=== PATIENT | female | born 1955 ===

== ENCOUNTER 2019-07-16 10:33 | Outpatient (CLI) | payer MEDICARE, SELFPAY ==
[2019-07-16 11:01] LABS: Creatinine Urine 210.68 mg/dL (40-278)
[2019-07-16 11:02] LABS: MALB Creatinine Ratio 7.4 mg/g (0-30); Microalbumin Urine Random 15.8 mg/L
[2019-07-16 11:14] LABS: Hemoglobin A1C 6.5 % (<5.7)
[2019-07-16 12:11] LABS: Alanine Aminotransferase 30 U/L (14-59); Albumin Level 3.8 g/dL (3.4-5.0); Alkaline Phosphatase 55 U/L (46-116); Anion Gap 12.7 mmol/L (7-16); Aspartate Amino Transferase 17 U/L (15-37); Bilirubin,Total 0.3 mg/dL (0.00-1.00); Blood Urea Nitrogen 18 mg/dL (7-18); Calcium 8.9 mg/dL (8.5-10.1); Carbon Dioxide 28 mmol/L (21-32); Chloride 105 mmol/L (98-108); Cholesterol 126 mg/dL (0-200); Estimated Glomerular Filt Rate 60; Glucose 101 mg/dL (70-99); HDL Direct 52 mg/dL (40-60); LDL Cholesterol Calculated 43 mg/dL (<130); Osmolality Calculated 293 mOsm/kg (285-295); Potassium 4.7 mmol/L (3.5-5.1); Sodium 141 mmol/L (136-145); Total Protein 6.7 g/dL (6.4-8.2); Triglycerides 156 mg/dL (0-150)
== END 2019-07-16 10:34 | disposition home or self-care (01) ==
PROVIDERS: PCP Family Medicine; Visit Provider Family Medicine
DX: E11.9 Type 2 diabetes mellitus without complications (principal)
CPT/HCPCS: 36415; 80053; 80061; 82043; 83036

== ENCOUNTER 2019-10-29 08:35 | Outpatient (CLI) | payer MEDICARE, SELFPAY ==
[2019-10-29 08:54] LABS: Hemoglobin A1C 6.2 % (<5.7)
== END 2019-10-29 08:36 | disposition home or self-care (01) ==
LOC: CHSLAB 08:37
PROVIDERS: PCP Family Medicine; Visit Provider Family Medicine
DX: E11.9 Type 2 diabetes mellitus without complications (principal)
CPT/HCPCS: 36415; 83036

== ENCOUNTER 2020-03-19 08:49 | Outpatient (CLI) | payer MEDICARE, SELFPAY ==
[2020-03-19 09:04] LABS: Hematocrit 39.6 % (35.0-42.0); Hemoglobin 13.3 g/dL (11.7-13.8); Mean Corpuscular HGB Conc 33.6 g/dL (32.0-36.0); Mean Corpuscular Hemoglobin 29.9 pg (27.0-31.0); Mean Platelet Volume 10.5 fl (9.2-11.8); Platelet Count Result 233 K/mm3 (150-420); Red Blood Count 4.45 M/mm3 (4.20-5.40); Red Cell Distribution Width 13.4 % (11.6-14.4); White Blood Count 5.5 K/mm3 (4.8-10.8)
[2020-03-19 09:14] LABS: Hemoglobin A1C 6.5 % (<5.7)
[2020-03-19 09:53] LABS: Alanine Aminotransferase 34 U/L (14-59); Albumin Level 4.1 g/dL (3.4-5.0); Alkaline Phosphatase 63 U/L (46-116); Anion Gap 10 mmol/L (8-16); Aspartate Amino Transferase 37 U/L (15-37); Bilirubin,Total 0.7 mg/dL (0.00-1.00); Blood Urea Nitrogen 20 mg/dL (7-18); Calcium 8.8 mg/dL (8.5-10.1); Carbon Dioxide 29 mmol/L (21-32); Chloride 103 mmol/L (98-108); Cholesterol 147 mg/dL (0-200); Estimated Glomerular Filt Rate 57; Glucose 168 mg/dL (70-99); HDL Direct 65 mg/dL (40-60); LDL Cholesterol Calculated 54 mg/dL (<130); Osmolality Calculated 300 mOsm/kg (285-295); Potassium 4.3 mmol/L (3.5-5.1); Sodium 142 mmol/L (136-145); Total Protein 6.9 g/dL (6.4-8.2); Triglycerides 140 mg/dL (0-150)
== END 2020-03-19 08:50 | disposition home or self-care (01) ==
LOC: CHSLAB 08:52
PROVIDERS: PCP Family Medicine; Visit Provider Family Medicine
DX: E78.5 Hyperlipidemia, unspecified (principal); E11.22 Type 2 diabetes mellitus with diabetic chronic kidney disease; I12.9 Hypertensive chronic kidney disease with stage 1 through stage 4 chronic kidney disease, or unspecified chronic kidney disease; N18.30 Chronic kidney disease, stage 3 unspecified; F41.1 Generalized anxiety disorder; F32.9 Major depressive disorder, single episode, unspecified
CPT/HCPCS: 36415; 80053; 80061; 83036; 85027

== ENCOUNTER 2020-05-15 11:46 | Outpatient (NON) | payer MEDICARE, SELFPAY | END 2020-05-15 11:47 | LOC: CHSLAB 11:47 | PROVIDERS: Visit Provider Nurse Practitioner Family | DX: R39.9 Unspecified symptoms and signs involving the genitourinary system (principal) | CPT/HCPCS: 87077; 87086; 87088; 87186 ==

== ENCOUNTER 2020-06-07 09:37 | Outpatient (CLI) | payer MEDICARE, MEDICAID, SELFPAY | END 2020-06-07 09:38 | disposition home or self-care (01) | LOC: CHSCOVIDVC 09:37 | PROVIDERS: PCP Family Medicine | DX: Z23 Encounter for immunization (principal) | CPT/HCPCS: 0011A; 91301 ==

== ENCOUNTER 2020-07-05 09:39 | Outpatient (CLI) | payer MEDICARE, MEDICAID, SELFPAY | END 2020-07-05 09:40 | disposition home or self-care (01) | LOC: CHSCOVIDVC 09:40 | PROVIDERS: PCP Family Medicine | DX: Z23 Encounter for immunization (principal) | CPT/HCPCS: 0012A; 91301 ==

== ENCOUNTER 2020-07-12 08:27 | Inpatient (IN) | payer MEDICARE, MEDICAID, SELFPAY ==
[2020-07-12] VITALS (10 sets, daily range): BP systolic 131–150; BP diastolic 53–82; PULSE 76–88; RESP 20–26; TEMP 36.2–38.3; O2SAT 86–93; BMI 50.8
--- NOTE | ~2020-07-12 | XR_ITS ---
EXAMINATION: XR chest 2V EXAM DATE: 07/12/2020 09:43 INDICATION: Shortness of breath . TECHNIQUE: Frontal and lateral projections of the chest obtained and reviewed. Comparison is made to prior examination from 11/30/2017. FINDINGS: Bilateral patchy peripheral predominant groundglass opacities Appearance is typical of COV ID 19 pneumonia. Less likely acute possibilities include influenza, pulmonary edema or hemorrhage. S ome chronic processes that can have this appearance include cryptogenic organizing pneumonia, [place] ative interstitial pneumonia, nonspecific interstitial pneumonia, drug toxicity, connective tissue di sease. Please clinically correlate and test as appropriate. No pneumothorax or pleural effusion. Cardiomediastinal silhouette is normal. There is aortic arterios clerosis. There are mild bony degenerative changes. IMPRESSION: Patchy bilateral groundglass airspace disease probably COVID 19 pneumonia given communit y prevalence. Less likely possibilities above. Reviewed, dictated and finalized at location A. IMPRESSION: Patchy bilateral groundglass airspace disease probably COVID 19 pn eum[place] given community prevalence. Less likely possibilities above.
--- NOTE | ~2020-07-12 | CT_ITS ---
EXAMINATION: CTA chest PE protocol EXAM DATE: 07/12/2020 10:44 INDICATION: shortness of breath with elevated D-dimer + D-DIMER, +COVID TECHNIQUE: Spiral CTA of the chest (pulmonary arteries) was performed with 100 cc Omnipaque 350 intr avenous contrast injection. Images were acquired during the pulmonary arterial phase. Coronal maxi mum intensity projection 3D-reconstructions were created by the technologist on dedicated workstation . Axial, coronal and sagittal reformatted images were reviewed. The dose-length product (DLP) for t his examination was 908.50 mGy-cm. The exposure was tailored according to patient size (auto mA exp osure control), and iterative reconstruction (ASIR) was used as additional dose reduction technique. There is no prior study for comparison. FINDINGS: There are no pulmonary emboli in the 1st through 3rd order (central and interlobar) pulmon katelynn arteries. Some loss of attenuation in the segmental pulmonary arteries from respiratory motion, segmental regions not confidently evaluated. No intraluminal filling defects identified. No thoraci c aortic dissection. There is diffuse bilateral airspace disease, groundglass opacities consistent w ith COVID pneumonia. There are no pleural or pericardial effusions. Tracheobronchial tree is paten t. There is no mediastinal, hilar or axillary lymphadenopathy. There is no pneumothorax. Heart normal in size. There is mild coronary arterial calcification, arterial sclerosis. There are candace cystectomy clips. Moderate sized bridging thoracic endplate osteophytes and disc disease. IMPRESSION: 1. No central pulmonary emboli. Limited segmental evaluation. 2. Diffuse bilateral airspace disease consistent with COVID pneumonia. Reviewed, dictated and finalized at location A.
--- NOTE | ~2020-07-12 | XR_ITS ---
EXAMINATION: XR chest 1V portable EXAM DATE: 07/13/2020 07:46 INDICATION: Worsening clinical condition. Shortness of breath. COVID pneumonia. TECHNIQUE: Frontal and lateral projections of the chest obtained and reviewed. Comparison is made to prior examination from 07/12/2020. FINDINGS: Bilateral diffuse peripheral predominant groundglass opacities, consistent with COVID pneu monia. No pneumothorax or pleural effusion. Cardiomediastinal silhouette is normal. There is aortic a rteriosclerosis. There are mild bony degenerative changes. Differences in AP versus yesterday's PA technique make it difficult to determine whether or not there has been progression in airspace disease. There is not been interval improvement. IMPRESSION: Diffuse bilateral groundglass airspace disease consistent with COVID 19 pneumonia. Reviewed, dictated and finalized at location A. IMPRESSION: Diffuse bilateral groundglass airspace disease consistent with COVI D 19 pneumonia.
--- NOTE | 2020-07-12 09:05 | ECG_ITS ---
Measurements Intervals [place] Rate: 76 P: 93 LA: 154 QRS: 63 QRSD: 106 T: 58 QT: 383 QTc: 432 Interpretive Statements SINUS RHYTHM BASELINE ARTIFACT- I, II, III, AVR, AVL, AVF NORMAL ECG Electronically Signed On 07-12-2020 18:02:13 CDT by Micky Douglas D.O.
[2020-07-12] MEDS: methylPREDNISolone SOD SUCC 125 MG VIAL IV PUSH (09:22)
[2020-07-12] MEDS: SODIUM CHLORIDE 0.9% IV 1,000 ML 999 ML IV CONT (09:23)
[2020-07-12 09:25] LABS: Basophils Absolute Auto 0.02 K/mm3 (0.00-0.10); Basophils Percent Auto 0.2 % (0.0-1.0); Hematocrit 34.4 % (35.0-42.0); Hemoglobin 12.1 g/dL (11.7-13.8); Immature Granulocyte Absolute 0.09 K/mm3 (0.00-0.00); Immature Granulocyte Percent A 0.7 % (0.0-0.0); Lymphocytes Absolute Auto 0.98 K/mm3 (1.10-4.50); Lymphocytes Percent Auto 7.7 % (18.0-42.0); Mean Corpuscular HGB Conc 35.2 g/dL (32.0-36.0); Mean Corpuscular Hemoglobin 29.7 pg (27.0-31.0); Mean Corpuscular Volume 84.3 fL (78.0-102.0); Mean Platelet Volume 10.6 fl (9.2-11.8); Monocytes Absolute Auto 0.63 K/mm3 (0.10-0.90); Neutrophils Percent Auto 86.4 % (50.0-70.0); Platelet Count Result 259 K/mm3 (150-420); Red Blood Count 4.08 M/mm3 (4.20-5.40); White Blood Count 12.7 K/mm3 (4.8-10.8)
[2020-07-12] MEDS: ACETAMINOPHEN 500 MG TABLET 1000 MG PO (09:27)
[2020-07-12 09:42] LABS: SARS-CoV-2 Ag Positive (Negative)
[2020-07-12 09:43] LABS: Partial Thromboplastin Time 28.9 SEC (23.90-30.70)
[2020-07-12 09:47] LABS: Alanine Aminotransferase 42 U/L (14-59); Albumin Level 3.1 g/dL (3.4-5.0); Alkaline Phosphatase 85 U/L (46-116); Anion Gap 14 mmol/L (8-16); Aspartate Amino Transferase 36 U/L (15-37); Bilirubin,Total 0.6 mg/dL (0.00-1.00); Blood Urea Nitrogen 27 mg/dL (7-18); Calcium 8.4 mg/dL (8.5-10.1); Carbon Dioxide 23 mmol/L (21-32); Chloride 97 mmol/L (98-108); Estimated CRCL calculation 48 ml/min; Estimated Glomerular Filt Rate 39; Glucose 225 mg/dL (70-99); NT Pro B Type Natriuretic Pept 576 pg/mL (0-125); Osmolality Calculated 290 mOsm/kg (285-295); Potassium 3.6 mmol/L (3.5-5.1); Sodium 134 mmol/L (136-145); Total Protein 7.3 g/dL (6.4-8.2)
[2020-07-12 09:48] LABS: Troponin I 63.3 ng/L (0.00-60.4)
--- NOTE | 2020-07-12 10:05 | ED.SOB ---
HPI - SOB/Dyspnea General Chief Complaint: Shortness of Breath/Dyspnea Stated Complaint: SOB, lightheadedness Source: patient Mode of arrival: ambulatory Limitations: no limitations History of Present Illness HPI Narrative: this is a 65-year-old female with history of shortness of breath with a cough productive of mildly yellow sputum was seen by primary care practitioners on and started on a steroids and some cough suppressant. But patient shortness of breath persisted currently satting at 86% on room air with temperature of 101?, currently no chest pain no abdominal pain no peripheral edema no nausea or vomiting. MD elicited complaint: shortness of breath and cough Onset (ago): day(s) Context: recent illness Severity: moderate Exacerbating factors: nothing Relieving factors: oxygen Associated symptoms: fever Related Data Allergies Allergy/AdvReac Type Severity Reaction Status Date / Time No Known Allergies Allergy Verified 07/10/20 13:56 Review of Systems Review of Systems: All systems reviewed & are unremarkable except as noted in HPI and below PMFSH Past Medical History Medical History (Updated 07/12/20 @ 10:13 by Reza Torres MD) CKD stage 3 due to type 2 diabetes mellitus Depression FH: bilateral hip replacements Generalized anxiety disorder GERD (gastroesophageal reflux disease) Hyperlipidemia Hypertension Overweight Type 2 diabetes mellitus Surgical History Surgical History H/O: hysterectomy History of cholecystectomy Social History Social History Smoking status: Never smoker Alcohol intake: never Substance use: never Gender identity (if verbalized by the patient): Female Spiritual care concerns: No Exam Const: General: no acute distress and alert Orientation/consciousness: patient oriented x3 HENMT: Head: normal to inspection Eyes: Conjunctivae: conjunctivae normal Pupils: Equal, round and reactive pupils present EOM: EOMs intact bilaterally Neck: Neck: normal visual inspection, no lymphadenopathy and no meningeal signs Chest: Chest palpation & inspection: normal inspection of the chest Resp: Auscultation: rhonchi and diminished lung sounds Cardio: Rate: regular rate Rhythm: regular rhythm GI: GI Palp: Yes Soft to palpation Percussion: Yes normal to percussion Back/Spine/Pelvis: Back: no CVA tenderness Skin: General skin exam: normal color Rashes: no rashes Neuro: General: patient oriented x3, moves all extremities and no meningeal signs Psych: Mental Status: mental status grossly normal Affect: normal affect Course Course Emergency Course: reassessment of patient currently satting at 94% with 4L of oxygen diagnosed with some COVID Vital Signs Vital signs: Vital Signs Temperature 38.3 C H 07/12/20 09:00 Pulse Rate 84 07/12/20 09:00 Respiratory Rate 26 H 07/12/20 09:00 Blood Pressure 150/62 H 07/12/20 09:00 Pulse Oximetry 86 L 07/12/20 09:00 Temperature 38.3 C H 07/12/20 09:00 Pulse Rate 84 07/12/20 09:00 Respiratory Rate 26 H 07/12/20 09:00 Blood Pressure 150/62 H 07/12/20 09:00 Pulse Oximetry 92 07/12/20 09:05 MDM - SOB/Dyspnea Lab Data Result diagrams: 07/12/20 09:15 07/12/20 09:15 Labs: Lab Results 07/12/20 07/12/20 07/12/20 Range/Units 09:10 09:15 09:15 WBC 12.7 H (4.8-10.8) K/mm3 RBC 4.08 L (4.20-5.40) M/mm3 Hgb 12.1 (11.7-13.8) g/dL Hct 34.4 L (35.0-42.0) % MCV 84.3 (78.0-102.0) fL MCH 29.7 (27.0-31.0) pg MCHC 35.2 (32.0-36.0) g/dL RDW 13.0 (11.6-14.4) % Plt Count 259 (150-420) K/mm3 MPV 10.6 (9.2-11.8) fl Immature Gran % (Auto) 0.7 H (0.0-0.0) % Neut % (Auto) 86.4 H (50.0-70.0) % Lymph % (Auto) 7.7 L (18.0-42.0) % Dawes % (Auto) 5.0 (2.0-11.0) % Eos % (Auto) 0.0 L (1.0-6.0)
[2020-07-12 10:14] LABS: D Dimer 0.73 mg/L (0.19-0.50)
--- NOTE | 2020-07-12 11:04 | PM.IMHP ---
H&P: HPI History of Present Illness Date/Time: 07/12/20 11:04 this is a 65-year-old female that presented to our emergency department with shortness of breath, cough with yellowish sputum and dyspnea. Patient has a past medical history of CKD, diabetes, depression,, anxiety, GERD, hyperlipidemia, hypertension and overweight. According to patient she received her second Covid vaccination on Tuesday. Patient started feeling bad on Tuesday patient notes that she has no history of asthma COPD or congestive heart failure. Patient notes she became short of breath that worsened to the point that she had to come to our ED. patient notes that she had shortness of breath with a productive cough with yellow sputum and a fever of 101. Patient also noted that she did go to her primary care physician who prescribed her with Flonase and prednisone. Patient notes that there was no improvement afterwards. Patient WBCs 12.7, RBCs 4.08, hemoglobin 12.1, hematocrit 34.4, platelets 259, D-dimer 0.73, sodium 134, potassium 3.6, BUN 27, creatinine 1.35 GFR 39, glucose 225, liver enzymes within normal limits, troponin 63.3, BUN 576+ Covid test. Patient is being admitted for Covid. Patient does admit to shortness of breath and fatigue. The patient denies CP, palpitation, extremity numbness, lightheadedness, dizziness, constipation, diarrhea, chills, or fever. Chief Complaint: Shortness of breath Review of Systems Review of Systems: Narrative: A 14 organ system Review of Systems was performed and pertinent positives included in the HPI, otherwise remaining ROS is negative. [facility] Past Medical History Medical History (Updated 07/12/20 @ 11:18 by JIGNA Clements) CKD stage 3 due to type 2 diabetes mellitus Depression FH: bilateral hip replacements Generalized anxiety disorder GERD (gastroesophageal reflux disease) Hyperlipidemia Hypertension Overweight Type 2 diabetes mellitus Surgical History Surgical History H/O: hysterectomy History of cholecystectomy Social History Social History Smoking status: Never smoker Alcohol intake: never Substance use: never Gender identity (if verbalized by the patient): Female Spiritual care concerns: No Meds Home Medications and Allergies Home Medications Medication Instructions Recorded Confirmed Type amlodipine 10 mg tablet 10 mg PO DAILY #90 tablet 11/26/19 07/12/20 Rx glipizide 10 mg tablet 10 mg PO DAILY #90 tablet 11/26/19 07/12/20 Rx metformin 1,000 mg tablet 1,000 mg PO BID #180 tablet 11/26/19 07/12/20 Rx metoprolol tartrate 50 mg tablet 50 mg PO BID 90 Days #180 tablet 11/26/19 07/12/20 Rx atorvastatin 10 mg tablet See Rx Instructions .ROUTE 01/15/20 07/12/20 Rx .COMPLEX #90 tablet amitriptyline 100 mg tablet See Rx Instructions .ROUTE 01/22/20 07/12/20 Rx .COMPLEX #90 tablet semaglutide 0.5 mg SUB-Q WEEKLY 90 Days #5.2 ml 05/13/20 07/12/20 Rx phenazopyridine 200 mg tablet 200 mg PO TID PRN #6 tablet 05/15/20 07/12/20 Rx lisinopril 20 mg tablet See Rx Instructions .ROUTE 07/08/20 07/12/20 Rx .COMPLEX #90 tablet benzonatate 200 mg capsule 200 mg PO BID PRN #20 cap 07/10/20 07/12/20 Rx fluticasone propionate 50 1 spray INTRANASAL DAILY #9.9 ml 07/10/20 07/12/20 Rx mcg/actuation nasal spray,suspension prednisone 20 mg tablet 40 mg PO DAILY #10 tablet 07/10/20 07/12/20 Rx Allergies Allergy/AdvReac Type Severity Reaction Status Date / Time No Known Allergies Allergy Verified 07/10/20 13:56 Vital Signs Vital Signs - 24 hr 07/12/20 09:00 07/12/20 09:05 07/12/20 10:34 Temperature 101 F H Pulse Rate 84 88 Respiratory Rate 26 H 26 H Blood Pressure 150/62 H 135/59 L Pulse Oximetry 86 L 92 93 Exam Narrative: Exam Narrative: GENERAL: This is a well-nourished, well-developed patient, in no apparent distress. HEAD: normocephalic, atraumatic. EYES
--- NOTE | 2020-07-12 11:30 | ADMGEN ---
This patient, Cary Bhatt, was admitted to 2nd Floor Room 210-1. Patient oriented to bed and alarms, visiting hours, pain management, procedures, bathroom and other care routines, personal items, smoking policy, room service/diet. Patient encouraged to report perceived risks to care and to ask questions if they do not understand what they are told or what they should do.
[2020-07-12 11:39] LABS: Add Urine Microscopic? YES; Appearance Urine Clear (Clear); Bilirubin Urine Negative (Negative); Blood Urine Negative (Negative); Color Urine Yellow (Yellow); Glucose Urine UA Negative (Negative); Ketones Urine Negative (Negative); Leukocyte Esterase Ur Negative LEU/UL (Negative); Nitrate Urine Negative (Negative); Protein Urine Trace (Negative); Specific Grav Ur <= 1.005 (1.010-1.020); Urobilinogen Urine 0.2 mg/dL (0.2-1.0); pH Urine 5.5 (5.0-8.0)
[2020-07-12 11:44] LABS: Bacteria Urine Trace /hpf; RBC Urine None seen /hpf (0-2); Squamous Epithelial Cell Urine Few /hpf (Few); WBC Urine None seen /hpf (0-3)
[2020-07-12] MEDS: DEXAMETHASONE SOD PHOS INJ 4 MG/ML VIAL 6 MG IV PUSH (12:01)
[2020-07-12] MEDS: SODIUM CHLORIDE 0.9% IV 1,000 ML 100 ML IV CONT ×2 (12:02→20:54)
[2020-07-12] MEDS: REMDESIVIR 200 MG/NS 250 ML 200 MG/250 ML BAG 250 MG IVPB (12:11)
[2020-07-12 12:26] LABS: Glucose Point of Care 291 mg/dl (65-105)
[2020-07-12 15:27] LABS: Troponin I 63.8 ng/L (0.00-60.4)
[2020-07-12] MEDS: DOCUSATE SODIUM 100 MG CAPSULE PO (16:38)
[2020-07-12 17:06] LABS: Glucose Point of Care 413 mg/dl (65-105)
[2020-07-12 18:23] LABS: Troponin I 62.5 ng/L (0.00-60.4)
[2020-07-12] MEDS: METOPROLOL TARTRATE 50 MG TAB PO (20:54)
[2020-07-12] MEDS: AMITRIPTYLINE HCL 25 MG TABLET 100 MG PO (20:54)
[2020-07-12 21:14] LABS: Glucose Point of Care 393 mg/dl (65-105)
--- NOTE | 2020-07-12 21:52 | PC.NURSE ---
Addendum entered by Adwoa Oliveira RN 07/12/20 22:00: MD notified of current Troponin level as well as blood sugar. Original Note: 1600 MD notified that patient's blood sugar was 413. New order for 1 time dose of Humalog 10 units.
--- NOTE | 2020-07-12 21:53 | PC.NURSE ---
Addendum entered by Adwoa Oliveira RN 07/12/20 22:01: MD also notified of current troponin level. Original Note: MD notified that patient's blood sugar is 393. New order to give 6 units of Humalog insulin.
[2020-07-13] VITALS (7 sets, daily range): BP systolic 137–144; BP diastolic 56–68; PULSE 72–78; RESP 18–20; TEMP 36.1–36.3; O2SAT 91–97
--- NOTE | 2020-07-13 00:52 | PC.NURSE ---
Dr. Torres notified of pt's low SAO2 rate of 83-86% with oxygen on at 5 liters per nasal cannula. Pt denies c/o shortness of breath or respiratory distress at this time. No new orders.
[2020-07-13] MEDS: glipiZIDE 5 MG TABLET 10 MG PO (05:45)
--- NOTE | 2020-07-13 06:01 | PC.NURSE ---
Dr. Torres notified of pt's low SAO2 of 77% on 5 liters of oxygen. New orders received and noted for a non rebreather.
[2020-07-13 06:03] LABS: Basophils Absolute Auto 0.01 K/mm3 (0.00-0.10); Basophils Percent Auto 0.1 % (0.0-1.0); Hematocrit 34.1 % (35.0-42.0); Hemoglobin 11.8 g/dL (11.7-13.8); Immature Granulocyte Absolute 0.09 K/mm3 (0.00-0.00); Immature Granulocyte Percent A 0.8 % (0.0-0.0); Lymphocytes Absolute Auto 1.23 K/mm3 (1.10-4.50); Lymphocytes Percent Auto 10.6 % (18.0-42.0); Mean Corpuscular HGB Conc 34.6 g/dL (32.0-36.0); Mean Corpuscular Hemoglobin 29.6 pg (27.0-31.0); Mean Corpuscular Volume 85.5 fL (78.0-102.0); Mean Platelet Volume 10.6 fl (9.2-11.8); Monocytes Absolute Auto 0.56 K/mm3 (0.10-0.90); Monocytes Percent Auto 4.8 % (2.0-11.0); Neutrophils Absolute Auto 9.7 K/mm3 (1.7-7.2); Neutrophils Percent Auto 83.7 % (50.0-70.0); Platelet Count Result 272 K/mm3 (150-420); Red Blood Count 3.99 M/mm3 (4.20-5.40); White Blood Count 11.6 K/mm3 (4.8-10.8)
--- NOTE | 2020-07-13 06:05 | PC.NURSE ---
Dr. Torres here and gave orders for high flow oxygen to be set up as soon as possible. Respiratory therapist Isabel Wasserman notified for set up.
[2020-07-13 06:13] LABS: Magnesium 1.9 mg/dL (1.8-2.4)
[2020-07-13 06:16] LABS: INR 1.1; Prothrombin Time 11.2 Seconds (9.50-12.10)
--- NOTE | 2020-07-13 06:18 | PM.EVENT ---
Event Note Event Note Event Note: assessment of patient after nurses call that the patient had a diminished O2 saturations in the upper 70s was placed on non-rebreather and currently more comfortable with O2 saturations in the upper 80s, will call Respiratory to place patient on high-flow oxygen.
--- NOTE | 2020-07-13 06:21 | PC.NURSE ---
Respiratory therapy here to set up high flow oxygen.
[2020-07-13 06:25] LABS: Alanine Aminotransferase 37 U/L (14-59); Estimated CRCL calculation 52 ml/min; Estimated Glomerular Filt Rate 42
--- NOTE | 2020-07-13 06:56 | PC.NURSE ---
Pt's daughter called to get an update on pt's condition. Daughter was given an update on pt's condition.
[2020-07-13 07:43] LABS: Base Excess ABG -3.5 mmol/L (0-2); HCO3 ABG 19.9 mmol/L (23-29); Oxygen Content ABG 16.4 %vol (16.0-22.0); Oxyhemoglobin 94.5 % (94-100); PO2 ABG 76.9 mmHg (75-85); Total Hemoglobin 12.3 g/dL; pH ABG 7.43 (7.35-7.45)
[2020-07-13 07:45] LABS: Fractional Inspired Oxygen 40 %
[2020-07-13 07:46] LABS: Alanine Aminotransferase 36 U/L (14-59); Albumin Level 2.7 g/dL (3.4-5.0); Alkaline Phosphatase 75 U/L (46-116); Anion Gap 14 mmol/L (8-16); Aspartate Amino Transferase 24 U/L (15-37); Bilirubin,Total 0.3 mg/dL (0.00-1.00); Blood Urea Nitrogen 32 mg/dL (7-18); Calcium 8.1 mg/dL (8.5-10.1); Carbon Dioxide 22 mmol/L (21-32); Chloride 100 mmol/L (98-108); Estimated CRCL calculation 53 ml/min; Estimated Glomerular Filt Rate 43; Glucose 307 mg/dL (70-99); Osmolality Calculated 300 mOsm/kg (285-295); Potassium 3.9 mmol/L (3.5-5.1); Sodium 136 mmol/L (136-145); Total Protein 6.9 g/dL (6.4-8.2)
[2020-07-13 07:48] LABS: Device HIGH FLOW THERAPY; Modified Allen's Test Pass; Site Drawn LEFT RADIAL
[2020-07-13 08:02] LABS: Glucose Point of Care 296 mg/dl (65-105)
[2020-07-13 08:05] LABS: Troponin I 49.3 ng/L (0.00-60.4)
[2020-07-13] MEDS: ATORVASTATIN 10 MG TABLET PO (09:03)
[2020-07-13] MEDS: DEXAMETHASONE SOD PHOS INJ 4 MG/ML VIAL 6 MG IV PUSH (09:03)
[2020-07-13] MEDS: amLODIPine BESYLATE 5 MG TABLET 10 MG PO (09:03)
[2020-07-13] MEDS: DOCUSATE SODIUM 100 MG CAPSULE PO ×2 (09:04→16:45)
[2020-07-13] MEDS: ENOXAPARIN 40 MG/0.4 ML SYRINGE SUB-Q (09:04)
[2020-07-13] MEDS: lisinopriL 20 MG TABLET PO (09:04)
[2020-07-13] MEDS: FLUTICASONE PROPIONATE 0.05% NA SPR 16 GM BTL (*BKC) 1 SPRAY NASAL (09:04)
[2020-07-13] MEDS: SODIUM CHLORIDE 0.9% IV 1,000 ML 100 ML IV CONT ×2 (09:05→21:34)
[2020-07-13] MEDS: METOPROLOL TARTRATE 50 MG TAB PO ×2 (09:05→21:31)
[2020-07-13] MEDS: PANTOPRAZOLE SOD SESQUIHYDRATE 20 MG TAB PO (09:05)
--- NOTE | 2020-07-13 09:28 | P.PN_ITS ---
Progress Note: A&P Assessment and Plan (1) COVID-19: Code(s): U07.1 - COVID-19 Status: Acute Assessment and Plan: * Continue remdesivir day 1 * Started dexamethasone * Started duo nebulizers with Tessalon Perles and supplementary oxygen if needed * Patient currently on high flow nasal cannula FiO2 at 40% with 40 L satting in the upper 90s * Chest x-ray unchanged * Patient will possibly need a home O2 evaluation on discharge for possible continuous oxygen use (2) Pneumonia due to COVID-19 virus: Code(s): U07.1 - COVID-19; J12.82 - Pneumonia due to coronavirus disease 2018 Status: Acute Assessment and Plan: * Chest x-ray indicates Patchy bilateral groundglass airspace disease probably COVID 19 pneumonia given community prevalence. * Would not treat patient with antibiotics * Continue treatment of COVID-19 * We will closely monitor patient for a fever and or elevated white count. If present will treat with antibiotic (3) Hyperlipidemia: Code(s): E78.5 - Hyperlipidemia, unspecified Status: Chronic Assessment and Plan: * Continue statins (4) CKD stage 3 due to type 2 diabetes mellitus: Code(s): E11.22 - Type 2 diabetes mellitus with diabetic chronic kidney disease; N18.3 - Chronic kidney disease, stage 3 (moderate) Status: Chronic Assessment and Plan: * Creatinine at 1.35 >1.28 baseline appears to be at 0.90 GFR 39>42 * With fluid challenge patient start normal saline at 100 mils per hour * Renal dose all medication * Avoid nephrotoxic agent * Closely monitor * CMP in the a.m. * Patient received 1 L in the ED (5) Overweight: Code(s): E66.3 - Overweight Status: Chronic Assessment and Plan: * Educated on healthy lifestyle (6) GERD (gastroesophageal reflux disease): Code(s): K21.9 - Gastro-esophageal reflux disease without esophagitis Status: Chronic Assessment and Plan: * Started Protonix (7) Hypertension: Code(s): I10 - Essential (primary) hypertension Status: Chronic Assessment and Plan: * Stable 130/59 * Continue metoprolol 50 mg twice daily, lisinopril 20 mg daily, amlodipine 10 mg daily (8) Generalized anxiety disorder: Code(s): F41.1 - Generalized anxiety disorder Status: Chronic Assessment and Plan: * Continue home medication as needed Ativan (9) Depression: Code(s): F32.9 - Major depressive disorder, single episode, unspecified Status: Chronic Assessment and Plan: * Continue home medication continue amitriptyline 100 mg daily (10) Type 2 diabetes mellitus: Code(s): E11.9 - Type 2 diabetes mellitus without complications Status: Chronic Assessment and Plan: * Elevated due to use of steroids * Metformin on hold, continue glipizide 10 mg daily * Continue Accu-Chek with sliding scale hypoglycemic protocol * Will adjust medication as needed * Started diabetic diet * We will closely monitor blood sugar with the use of steroids * Added 7 units of insulin 3 times daily with meals for better control (11) Elevated troponin: Code(s): R77.8 - Other specified abnormalities of plasma proteins Status: Acute Assessment and Plan: * Is * Control 0.62,>49.3 * EKG sinus rhythm (12) Elevated d-dimer: Code(s): R79.89 - Other specified abnormal findings of blood chemistry Status: Acute Assessment and Plan: * CTA negative for PE * Patient denies any lower extremity pain Review of System
--- NOTE | 2020-07-13 09:28 | WPDPN ---
Progress Note: A&P Assessment and Plan (1) COVID-19: Code(s): U07.1 - COVID-19 Status: Acute Assessment and Plan: Continue remdesivir day 1 Started dexamethasone Started duo nebulizers with Tessalon Perles and supplementary oxygen if needed Patient currently on high flow nasal cannula FiO2 at 40% with 40 L satting in the upper 90s Chest x-ray unchanged Patient will possibly need a home O2 evaluation on discharge for possible continuous oxygen use (2) Pneumonia due to COVID-19 virus: Code(s): U07.1 - COVID-19; J12.82 - Pneumonia due to coronavirus disease 2018 Status: Acute Assessment and Plan: Chest x-ray indicates Patchy bilateral groundglass airspace disease probably COVID 19 pneumonia given community prevalence. Would not treat patient with antibiotics Continue treatment of COVID-19 We will closely monitor patient for a fever and or elevated white count. If present will treat with antibiotic (3) Hyperlipidemia: Code(s): E78.5 - Hyperlipidemia, unspecified Status: Chronic Assessment and Plan: Continue statins (4) CKD stage 3 due to type 2 diabetes mellitus: Code(s): E11.22 - Type 2 diabetes mellitus with diabetic chronic kidney disease; N18.3 - Chronic kidney disease, stage 3 (moderate) Status: Chronic Assessment and Plan: Creatinine at 1.35 >1.28 baseline appears to be at 0.90 GFR 39>42 With fluid challenge patient start normal saline at 100 mils per hour Renal dose all medication Avoid nephrotoxic agent Closely monitor CMP in the a.m. Patient received 1 L in the ED (5) Overweight: Code(s): E66.3 - Overweight Status: Chronic Assessment and Plan: Educated on healthy lifestyle (6) GERD (gastroesophageal reflux disease): Code(s): K21.9 - Gastro-esophageal reflux disease without esophagitis Status: Chronic Assessment and Plan: Started Protonix (7) Hypertension: Code(s): I10 - Essential (primary) hypertension Status: Chronic Assessment and Plan: Stable 130/59 Continue metoprolol 50 mg twice daily, lisinopril 20 mg daily, amlodipine 10 mg daily (8) Generalized anxiety disorder: Code(s): F41.1 - Generalized anxiety disorder Status: Chronic Assessment and Plan: Continue home medication as needed Ativan (9) Depression: Code(s): F32.9 - Major depressive disorder, single episode, unspecified Status: Chronic Assessment and Plan: Continue home medication continue amitriptyline 100 mg daily (10) Type 2 diabetes mellitus: Code(s): E11.9 - Type 2 diabetes mellitus without complications Status: Chronic Assessment and Plan: Elevated due to use of steroids Metformin on hold, continue glipizide 10 mg daily Continue Accu-Chek with sliding scale hypoglycemic protocol Will adjust medication as needed Started diabetic diet We will closely monitor blood sugar with the use of steroids Added 7 units of insulin 3 times daily with meals for better control (11) Elevated troponin: Code(s): R77.8 - Other specified abnormalities of plasma proteins Status: Acute Assessment and Plan: Is Control 0.62,>49.3 EKG sinus rhythm (12) Elevated d-dimer: Code(s): R79.89 - Other specified abnormal findings of blood chemistry Status: Acute Assessment and Plan: CTA negative for PE Patient denies any lower extremity pain Review of Systems Review of Systems: Narrative: A 14 organ system Review of Systems was performed and pertinent positives included in the HPI, otherwise remaining ROS is negative. Exam Narrative: Exam Narrative: GENERAL: This is a well-nourished, well-developed patient, in no apparent distress. HEAD: normocephalic, atraumatic. EYES: PERRL. Sclera clear/white. Vision is grossly intact. EARS: External ears normal, auditory canals clear and without drainage, TMs normal w
[2020-07-13] MEDS: REMDESIVIR 100 MG/NS 250 ML 100 MG/250 ML BAG 250 MG IVPB (10:55)
[2020-07-13 11:12] LABS: Glucose Point of Care 313 mg/dl (65-105)
[2020-07-13 16:54] LABS: Glucose Point of Care 271 mg/dl (65-105)
[2020-07-13 21:20] LABS: Glucose Point of Care 245 mg/dl (65-105)
[2020-07-13] MEDS: AMITRIPTYLINE HCL 25 MG TABLET 100 MG PO (21:34)
[2020-07-14] VITALS (7 sets, daily range): BP systolic 141–155; BP diastolic 61–76; PULSE 66–80; RESP 20–40; TEMP 35.8–36.8; O2SAT 86–95
[2020-07-14] MEDS: LORazepam INJ (*CRX) 2 MG/ML VIAL 0.5 MG IV PUSH ×3 (03:50→20:38)
--- NOTE | 2020-07-14 03:51 | PC.NURSE ---
HARRIS Callejas at bedside to administer IV push Lorazepam.
[2020-07-14 05:03] LABS: Hematocrit 32.5 % (35.0-42.0); Hemoglobin 11.3 g/dL (11.7-13.8); Mean Corpuscular HGB Conc 34.8 g/dL (32.0-36.0); Mean Corpuscular Hemoglobin 29.9 pg (27.0-31.0); Mean Platelet Volume 10.5 fl (9.2-11.8); Platelet Count Result 289 K/mm3 (150-420); Red Blood Count 3.78 M/mm3 (4.20-5.40); Red Cell Distribution Width 13.2 % (11.6-14.4); White Blood Count 13.5 K/mm3 (4.8-10.8)
[2020-07-14 05:15] LABS: INR 1.1; Prothrombin Time 11.4 Seconds (9.50-12.10)
[2020-07-14 05:20] LABS: Alanine Aminotransferase 33 U/L (14-59); Albumin Level 2.5 g/dL (3.4-5.0); Alkaline Phosphatase 71 U/L (46-116); Anion Gap 11 mmol/L (8-16); Aspartate Amino Transferase 21 U/L (15-37); Bilirubin,Total 0.3 mg/dL (0.00-1.00); Blood Urea Nitrogen 35 mg/dL (7-18); Calcium 7.8 mg/dL (8.5-10.1); Carbon Dioxide 24 mmol/L (21-32); Chloride 103 mmol/L (98-108); Estimated CRCL calculation 57 ml/min; Estimated Glomerular Filt Rate 46; Glucose 261 mg/dL (70-99); Magnesium 1.8 mg/dL (1.8-2.4); Osmolality Calculated 303 mOsm/kg (285-295); Potassium 3.9 mmol/L (3.5-5.1); Sodium 138 mmol/L (136-145); Total Protein 6.4 g/dL (6.4-8.2)
[2020-07-14] MEDS: SODIUM CHLORIDE 0.9% IV 1,000 ML 100 ML IV CONT ×2 (06:47→18:33)
[2020-07-14] MEDS: glipiZIDE 5 MG TABLET 10 MG PO (07:45)
--- NOTE | 2020-07-14 09:11 | PHAR ---
07/14/20: verified pt.'s dose of ozempic w/doug at [facility] in [place]. takes 0.5mg weekly. verified pt.'s home med she brought in too. tls
[2020-07-14] MEDS: ALBUTEROL SULFATE (*SP) INHALER 2 PUFF INHALATION ×4 (09:32→20:05)
[2020-07-14] MEDS: ENOXAPARIN 40 MG/0.4 ML SYRINGE SUB-Q (09:34)
[2020-07-14] MEDS: FLUTICASONE PROPIONATE 0.05% NA SPR 16 GM BTL (*BKC) 1 SPRAY NASAL (09:34)
[2020-07-14] MEDS: DEXAMETHASONE SOD PHOS INJ 4 MG/ML VIAL 6 MG IV PUSH (09:36)
[2020-07-14] MEDS: PANTOPRAZOLE SOD SESQUIHYDRATE 20 MG TAB PO (09:37)
[2020-07-14] MEDS: lisinopriL 20 MG TABLET PO (09:37)
[2020-07-14] MEDS: DOCUSATE SODIUM 100 MG CAPSULE PO ×3 (09:37→17:18)
[2020-07-14] MEDS: ATORVASTATIN 10 MG TABLET PO (09:37)
[2020-07-14] MEDS: amLODIPine BESYLATE 5 MG TABLET 10 MG PO (09:37)
[2020-07-14] MEDS: METOPROLOL TARTRATE 50 MG TAB PO ×2 (09:38→20:06)
[2020-07-14] MEDS: BUDESONIDE/FORMOTEROL (*SP) 160-4.5 MCG 6 GM INH 2 PUFF INHALATION ×2 (09:42→20:05)
[2020-07-14] MEDS: PROCHLORPERAZINE EDISYLATE 10 MG/2 ML VIAL IV PUSH ×3 (10:13→21:11)
[2020-07-14 10:14] LABS: Glucose Point of Care 266 mg/dl (65-105)
[2020-07-14] MEDS: polyethylene glycoL 3350 17 GM POWD.PACK PO (10:21)
[2020-07-14] MEDS: REMDESIVIR 100 MG/NS 250 ML 100 MG/250 ML BAG 250 MG IVPB (11:36)
[2020-07-14 11:52] LABS: Glucose Point of Care 220 mg/dl (65-105)
--- NOTE | 2020-07-14 14:44 | WPDPN ---
Progress Note: A&P Assessment and Plan (1) COVID-19: Code(s): U07.1 - COVID-19 Status: Acute Assessment and Plan: Continue remdesivir day 2 Continue dexamethasone Continue inhaled with Tessalon Perles and supplementary oxygen if needed Patient currently on high flow nasal cannula FiO2 at 40% with 40 L satting in the upper 90s Chest x-ray unchanged Patient will possibly need a home O2 evaluation on discharge for possible continuous oxygen use (2) Pneumonia due to COVID-19 virus: Code(s): U07.1 - COVID-19; J12.82 - Pneumonia due to coronavirus disease 2018 Status: Acute Assessment and Plan: Chest x-ray indicates Patchy bilateral groundglass airspace disease probably COVID 19 pneumonia given community prevalence. Continue Rocephin and Bactrim (3) Hyperlipidemia: Code(s): E78.5 - Hyperlipidemia, unspecified Status: Chronic Assessment and Plan: Continue statins (4) CKD stage 3 due to type 2 diabetes mellitus: Code(s): E11.22 - Type 2 diabetes mellitus with diabetic chronic kidney disease; N18.3 - Chronic kidney disease, stage 3 (moderate) Status: Chronic Assessment and Plan: Creatinine at 1.35 >1.28 >1.17 baseline appears to be at 0.90 GFR 39>42>46 improving With fluid challenge patient start normal saline at 100 mils per hour Renal dose all medication Avoid nephrotoxic agent Closely monitor CMP in the a.m. Patient received 1 L in the ED (5) Overweight: Code(s): E66.3 - Overweight Status: Chronic Assessment and Plan: Educated on healthy lifestyle (6) GERD (gastroesophageal reflux disease): Code(s): K21.9 - Gastro-esophageal reflux disease without esophagitis Status: Chronic Assessment and Plan: Started Protonix (7) Hypertension: Code(s): I10 - Essential (primary) hypertension Status: Chronic Assessment and Plan: Slightly elevated we will continue to monitor Continue metoprolol 50 mg twice daily, lisinopril 20 mg daily, amlodipine 10 mg daily Vital signs as ordered Adjust medications as needed (8) Generalized anxiety disorder: Code(s): F41.1 - Generalized anxiety disorder Status: Chronic Assessment and Plan: Continue home medication as needed Ativan (9) Depression: Code(s): F32.9 - Major depressive disorder, single episode, unspecified Status: Chronic Assessment and Plan: Continue home medication continue amitriptyline 100 mg daily (10) Type 2 diabetes mellitus: Code(s): E11.9 - Type 2 diabetes mellitus without complications Status: Chronic Assessment and Plan: Elevated due to use of steroids less than 300 Metformin on hold, continue glipizide 10 mg daily Continue Accu-Chek with sliding scale hypoglycemic protocol Will adjust medication as needed Started diabetic diet We will closely monitor blood sugar with the use of steroids Added 7 units of insulin 3 times daily with meals for better control (11) Elevated troponin: Code(s): R77.8 - Other specified abnormalities of plasma proteins Status: Acute Assessment and Plan: Is Control 0.62,>49.3 EKG sinus rhythm (12) Elevated d-dimer: Code(s): R79.89 - Other specified abnormal findings of blood chemistry Status: Acute Assessment and Plan: CTA negative for PE Patient denies any lower extremity pain Review of Systems Review of Systems: Narrative: A 14 organ system Review of Systems was performed and pertinent positives included in the HPI, otherwise remaining ROS is negative. Exam Narrative: Exam Narrative: Exam Narrative: GENERAL: Fatigued, in no apparent distress. HEAD: normocephalic, atraumatic. EYES: PERRL. Sclera clear/white. Vision is grossly intact. EARS: External ears normal, auditory canals clear and without drainage, TMs normal without perforation. Hearing grossly intact. NOSE: External nose nor
[2020-07-14 17:18] LABS: Glucose Point of Care 309 mg/dl (65-105)
[2020-07-14] MEDS: MECLIZINE HCL 25 MG TABLET PO ×2 (18:35→20:37)
[2020-07-14] MEDS: AMITRIPTYLINE HCL 25 MG TABLET 100 MG PO (20:05)
[2020-07-14] MEDS: SENNA/DOCUSATE SODIUM TABLET 1 TAB PO (20:06)
--- NOTE | 2020-07-14 20:10 | PC.NURSE ---
Nurse entered room as patient was transferring herself from bed to bedside commode. Patient very unsteady. Patient had large bm but was unable to clean herself so nurse cleaned her and assisted patient back to bed. Patient denies having any emesis since before supper time today. Patient gets very SOB with exertion but recovers quickly once in bed. Hi-flow O2 continues @ 40 liters and 90% FiO2. Patient is alert and oriented x4. Patient denies pain. NS infusing to site in right wrist. Patient took po meds and did inhalers without difficulty. Nurse instructed patient to call for assistance when needing to get up to commode and patient verbalized understanding. Call light in reach.
--- NOTE | 2020-07-14 20:30 | PC.NURSE ---
Patient called to nurses desk and reported that she has had an emesis. Nurse entered room and patient had 200ml brown phlegmy emesis. Patient reports being very dizzy and nauseous. Patient appears anxious. Patient remains alert and oriented x4. Respirations unlabored with Hi-Flow O2 on @ 40 liters with FiO2 of 90%. NS infusing without difficulty. Call light in reach.
[2020-07-14] MEDS: traZODone HCL 50 MG TABLET PO (20:37)
--- NOTE | 2020-07-14 20:55 | PC.NURSE ---
Patient given PRN Ativan and Meclizine for nausea and anxiety per request. Patient aware that Compazine cannot be given yet and verbalized understanding. Respirations slightly labored. Hi-Flow O2 continues. Patient reminded to use pursed lip breathing. Patient continues to be nauseous but has had no further emesis. Call light in reach. Charge nurse notified of patient being nauseous.
--- NOTE | 2020-07-14 21:12 | PC.NURSE ---
notified that patient continues to have nausea and emesis with next dose of Compazine is not due until 2300. New order received to give next dose of Compazine now.
--- NOTE | 2020-07-14 21:15 | PC.NURSE ---
PRN Compazine given per MD order. Patient continues to be dizzy and nauseous. Patient says the Ativan has helped her calm down some. Patient lying in bed with respirations unlabored. Hi-Flow O2 continues. Patient alert and oriented x4. Reminded patient to call for assist if needs to get up. Patient verbalized understanding. Call light in reach.
[2020-07-14 21:30] LABS: Glucose Point of Care 302 mg/dl (65-105)
--- NOTE | 2020-07-14 22:35 | PC.NURSE ---
Patient resting in bed. Denies nausea but says she's still dizzy. NS infusing without difficulty. Hi-Flow O2 continues @ 40 liter with FiO2 @ 90%. Patient's respirations even and unlabored. No distress noted. Call light in reach.
--- NOTE | 2020-07-14 23:30 | PC.NURSE ---
Patient used call light at 2315 to tell nurse that her machine is beeping and she's sitting on the floor. 3 nurses enter room and find patient sitting on her buttocks next to the bed. 3 nurses attempted to get patient off floor and into bed but were unable. Patient ended up getting to her knees and stood up with assistance. Patient assisted into bed. Patient had her Hi-Flow O2 off and was very SOB. When asked patient what happened she said she thought she could get up by herself but got really dizzy. Patient reports landing on her belly softly and then managed to sit up by herself. Patient denies hitting anything but the floor and says she doesn't hurt anywhere. No bruises or abrasions noted. Hi-Flow O2 put back on. Patient continued to be SOB. Reminded patient to do pursed lip breathing. IV site to right wrist no longer flushes. NS changed to site in LFA. Nurse stayed with patient several minutes to see if her respirations would calm due to respirations being 40 and SpO2 will not rise above 86%. Charge nurse aware of all. Patient's bed alarm turned on. Reminded patient once again not to get up without assistance
--- NOTE | 2020-07-14 23:58 | PC.NURSE ---
Doctor notified of patient fall and subsequent low SPO2. Advised to give patient additional time to recover and recheck.
--- NOTE | 2020-07-15 | PC.NURSE ---
Daughter Kym notified of patient's fall.
[2020-07-15 00:15] VITALS: BP 154/90; PULSE 79; RESP 38; TEMP 36.4; O2SAT 78
--- NOTE | 2020-07-15 00:22 | PC.NURSE ---
Patient alert and oriented x4. SPO2 at 79%. Doctor notified. Order received to contact RT to place patient on BiPAP.
--- NOTE | 2020-07-15 00:40 | PC.NURSE ---
Isabel RT here and has BiPap started on patient. Patient's respirations remain labored.
[2020-07-15 01:00] VITALS: PULSE 71; RESP 48; O2SAT 90
--- NOTE | 2020-07-15 01:00 | PC.NURSE ---
Patient's SpO2 remains in mid 80's on the BiPap machine. Respirations remain labored. Dr Torres aware and says he will intubate patient.
--- NOTE | 2020-07-15 01:30 | PC.NURSE ---
Dr Torres, Isabel Wasserman RT, Adama Leon RN and Olga Lidia Perry RN Charge Nurse in patient's room. Patient's SpO2 is now in low 90's. Dr Torres says he will hold off on intubating patient and see now she does. Adama Leon RN spoke with patient about intubation and needing consent and patient says she won't sign the consent until she speaks with her daughter.
--- NOTE | 2020-07-15 01:34 | PC.NURSE ---
Daughter notified that patient may require intubation. Patient does not want to sign consent until she speaks with her daughter. Daughter notified and is coming into see patient.
[2020-07-15 01:50] LABS: Base Excess ABG -3.9 mmol/L (0-2); HCO3 ABG 19.8 mmol/L (23-29); Oxygen Content ABG 16.1 %vol (16.0-22.0); Oxyhemoglobin 88.7 % (94-100); PCO2 ABG 32.2 mmHg (35-45); PO2 ABG 55.9 mmHg (75-85); Total Hemoglobin 12.9 g/dL; pH ABG 7.41 (7.35-7.45)
[2020-07-15 01:51] LABS: Device BIPAP; Modified Allen's Test Pass; Site Drawn RIGHT RADIAL
[2020-07-15 01:52] LABS: Expiratory Pressure 14 cmH2O; Inspiratory Pressure 20 cmH2O
--- NOTE | 2020-07-15 02:45 | PC.NURSE ---
Patient remains on BiPap machine. Respirations are fluctuating from 46-58. Respirations remain labored. Heart rate staying steady @ 66-76. SpO2 is staying from 87-91. Daughter spoke with Dr Torres when she was leaving and gave her choices for hospitals to transfer patient to if needed.
[2020-07-15 02:49] VITALS: PULSE 76; RESP 44; O2SAT 89
--- NOTE | 2020-07-15 02:52 | PC.NURSE ---
Patient and her daughter signed consent for intubation
--- NOTE | 2020-07-15 04:01 | PC.NURSE ---
Called [facility] for transport to [facility] in [place], [place]. [facility] is not flying due to weather conditions.
--- NOTE | 2020-07-15 04:07 | PC.NURSE ---
Called [facility] for transport to [facility]. Service denied due to not having ALS crew.
--- NOTE | 2020-07-15 04:08 | PC.NURSE ---
Called [facility] to transport patient to [facility]. Ambulance will transport pt.
--- NOTE | 2020-07-15 04:25 | PC.NURSE ---
[facility] here. EMT's suggest trying other helicopter transports before doing ground transfer.
--- NOTE | 2020-07-15 04:33 | PC.NURSE ---
Called [facility] in [place], [place] for transport and was declined due to weather conditions.
--- NOTE | 2020-07-15 04:38 | PC.NURSE ---
Addendum entered by Velvet Hebert RN 07/15/20 05:58: [facility] left facility after finding out [facility] can transport patient. Original Note: Called [facility] to transport patient and was told yes, they can transfer patient and their ETA is 21 minutes.
--- NOTE | 2020-07-15 04:54 | PC.NURSE ---
[facility] called and said they cannot transfer patient due to weather conditions.
--- NOTE | 2020-07-15 04:56 | PC.NURSE ---
Called [facility] to transport patient but was told they are unable to fly due to weather conditions.
--- NOTE | 2020-07-15 05:00 | PC.NURSE ---
Report called to Serjio at [facility] Transported by [facility] ambulance. RT accompanied.
--- NOTE | 2020-07-15 05:02 | PC.NURSE ---
Called [facility] back to do ground transfer to [facility] due to [facility] canceling.
--- NOTE | 2020-07-15 05:15 | PC.NURSE ---
[facility] @ [facility] to transfer patient.
--- NOTE | 2020-07-15 05:30 | PC.NURSE ---
Patient left hospital per [facility] to go to [facility] in [place], [place]. Patient intubated and being bagged per Isabel MCKEON.
--- NOTE | 2020-07-15 06:18 | P.PNCROSS_ITS ---
Event Note Event Note Event Note: was called by nurses because patient apparently was found on the floor after she got up to go to the bathroom and when she returned to bed noticed her O2 saturations had dropped into the upper 60s and 70s. High-flow oxygen was replaced but her O2 sats remained on the lower side of 70s. Respiratory was called in and patient was placed on BiPAP, O2 sats slowly improved to about 88 to 90% but respiratory rate was about 45 and sometimes up to 50. Patient is a full code but when asked about intubation the patient was apprehensive and want to talk to her daughter, waited for daughter to come in and her daughter talked to the patient and decided that yes be okay for intubati on. Difficult intubation, and eventually an LMA was placed and O2 sats responded favorably with [facility] bag, and respiratory place the patient on a ventilator but every time the patient was placed on the ventilator the patient would desat and we continue to bag the patient. A doctor from [facility] in [place] in the IC unit was called, situation was some expressed to the physician and he wanted the patient more stable before transport, [facility] was called but due to weather conditions were not flying so [facility] was called for transport. Eventually the patient was intubated with a 7 and a half tube but ventilator was not working properly and the patient was continued on bag-mask and was satting at 90 to 92%. Patient received sedation with some Versed and ketamine before transport with EMS. Patient's vital signs were stable patient's O2 sats up to 89 90% with a bag mask. [facility] some real estate photographer except with the patient and the patient was transported.
--- NOTE | 2020-07-15 07:12 | P.DS_ITS ---
DS: Admitting Diagnosis Admitting Diagnosis Admitting Diagnosis: Covid pneumonia DS: Discharge Diagnosis Discharge Diagnosis (1) COVID-19: Code(s): U07.1 - COVID-19 Status: Acute Assessment and Plan: * Continue remdesivir day 2 * Continue dexamethasone * Continue inhaled with Tessalon Perles and supplementary oxygen if needed * Patient currently on high flow nasal cannula FiO2 at 40% with 40 L satting in the upper 90s * Chest x-ray unchanged * Patient will possibly need a home O2 evaluation on discharge for possible continuous oxygen use (2) Pneumonia due to COVID-19 virus: Code(s): U07.1 - COVID-19; J12.82 - Pneumonia due to coronavirus disease 2018 Status: Acute Assessment and Plan: * Chest x-ray indicates Patchy bilateral groundglass airspace disease probably COVID 19 pneumonia given community prevalence. * Continue Rocephin and Bactrim (3) Hyperlipidemia: Code(s): E78.5 - Hyperlipidemia, unspecified Status: Chronic Assessment and Plan: * Continue statins (4) CKD stage 3 due to type 2 diabetes mellitus: Code(s): E11.22 - Type 2 diabetes mellitus with diabetic chronic kidney disease; N18.3 - Chronic kidney disease, stage 3 (moderate) Status: Chronic Assessment and Plan: * Creatinine at 1.35 >1.28 >1.17 baseline appears to be at 0.90 GFR 39>42>46 improving * With fluid challenge patient start normal saline at 100 mils per hour * Renal dose all medication * Avoid nephrotoxic agent * Closely monitor * CMP in the a.m. * Patient received 1 L in the ED (5) Overweight: Code(s): E66.3 - Overweight Status: Chronic Assessment and Plan: * Educated on healthy lifestyle (6) GERD (gastroesophageal reflux disease): Code(s): K21.9 - Gastro-esophageal reflux disease without esophagitis Status: Chronic Assessment and Plan: * Started Protonix (7) Hypertension: Code(s): I10 - Essential (primary) hypertension Status: Chronic Assessment and Plan: * Slightly elevated we will continue to monitor * Continue metoprolol 50 mg twice daily, lisinopril 20 mg daily, amlodipine 10 mg daily * Vital signs as ordered * Adjust medications as needed (8) Generalized anxiety disorder: Code(s): F41.1 - Generalized anxiety disorder Status: Chronic Assessment and Plan: * Continue home medication as needed Ativan (9) Depression: Code(s): F32.9 - Major depressive disorder, single episode, unspecified Status: Chronic Assessment and Plan: * Continue home medication continue amitriptyline 100 mg daily (10) Type 2 diabetes mellitus: Code(s): E11.9 - Type 2 diabetes mellitus without complications Status: Chronic Assessment and Plan: * Elevated due to use of steroids less than 300 * Metformin on hold, continue glipizide 10 mg daily * Continue Accu-Chek with sliding scale hypoglycemic protocol * Will adjust medication as needed * Started diabetic diet * We will closely monitor blood sugar with the use of steroids * Added 7 units of insulin 3 times daily with meals for better control (11) Elevated troponin: Code(s): R77.8 - Other specified abnormalities of plasma proteins Status: Acute Assessment and Plan: * Is * Control 0.62,>49.3 * EKG sinus rhythm (12) Elevated d-dimer: Code(s): R79.89 - Other specified abnormal findings of blood chemistry Status: Acute Assessment and Plan: * CTA negative for PE * Pa
--- NOTE | 2020-07-15 07:12 | PM.DS ---
DS: Admitting Diagnosis Admitting Diagnosis Admitting Diagnosis: Covid pneumonia DS: Discharge Diagnosis Discharge Diagnosis (1) COVID-19: Code(s): U07.1 - COVID-19 Status: Acute Assessment and Plan: Continue remdesivir day 2 Continue dexamethasone Continue inhaled with Tessalon Perles and supplementary oxygen if needed Patient currently on high flow nasal cannula FiO2 at 40% with 40 L satting in the upper 90s Chest x-ray unchanged Patient will possibly need a home O2 evaluation on discharge for possible continuous oxygen use (2) Pneumonia due to COVID-19 virus: Code(s): U07.1 - COVID-19; J12.82 - Pneumonia due to coronavirus disease 2018 Status: Acute Assessment and Plan: Chest x-ray indicates Patchy bilateral groundglass airspace disease probably COVID 19 pneumonia given community prevalence. Continue Rocephin and Bactrim (3) Hyperlipidemia: Code(s): E78.5 - Hyperlipidemia, unspecified Status: Chronic Assessment and Plan: Continue statins (4) CKD stage 3 due to type 2 diabetes mellitus: Code(s): E11.22 - Type 2 diabetes mellitus with diabetic chronic kidney disease; N18.3 - Chronic kidney disease, stage 3 (moderate) Status: Chronic Assessment and Plan: Creatinine at 1.35 >1.28 >1.17 baseline appears to be at 0.90 GFR 39>42>46 improving With fluid challenge patient start normal saline at 100 mils per hour Renal dose all medication Avoid nephrotoxic agent Closely monitor CMP in the a.m. Patient received 1 L in the ED (5) Overweight: Code(s): E66.3 - Overweight Status: Chronic Assessment and Plan: Educated on healthy lifestyle (6) GERD (gastroesophageal reflux disease): Code(s): K21.9 - Gastro-esophageal reflux disease without esophagitis Status: Chronic Assessment and Plan: Started Protonix (7) Hypertension: Code(s): I10 - Essential (primary) hypertension Status: Chronic Assessment and Plan: Slightly elevated we will continue to monitor Continue metoprolol 50 mg twice daily, lisinopril 20 mg daily, amlodipine 10 mg daily Vital signs as ordered Adjust medications as needed (8) Generalized anxiety disorder: Code(s): F41.1 - Generalized anxiety disorder Status: Chronic Assessment and Plan: Continue home medication as needed Ativan (9) Depression: Code(s): F32.9 - Major depressive disorder, single episode, unspecified Status: Chronic Assessment and Plan: Continue home medication continue amitriptyline 100 mg daily (10) Type 2 diabetes mellitus: Code(s): E11.9 - Type 2 diabetes mellitus without complications Status: Chronic Assessment and Plan: Elevated due to use of steroids less than 300 Metformin on hold, continue glipizide 10 mg daily Continue Accu-Chek with sliding scale hypoglycemic protocol Will adjust medication as needed Started diabetic diet We will closely monitor blood sugar with the use of steroids Added 7 units of insulin 3 times daily with meals for better control (11) Elevated troponin: Code(s): R77.8 - Other specified abnormalities of plasma proteins Status: Acute Assessment and Plan: Is Control 0.62,>49.3 EKG sinus rhythm (12) Elevated d-dimer: Code(s): R79.89 - Other specified abnormal findings of blood chemistry Status: Acute Assessment and Plan: CTA negative for PE Patient denies any lower extremity pain DS: Summary Hospital Course Reason for hospitalization: covid pna Hospital Course: this is a 65-year-old female that presented to our emergency department with shortness of breath, cough with yellowish sputum and dyspnea. Patient has a past medical history of CKD, diabetes, depression,, anxiety, GERD, hyperlipidemia, hypertension and overweight. According to patient she received her second Covid vaccination on Tuesday. Patient
--- NOTE | 2020-07-15 11:40 | PC.NURSE ---
patricia at [facility] called and verified antibiotic times
== END 2020-07-15 05:00 | disposition short-term general hospital (02) | DRG 177 ==
LOC: CHSED 10:13 → CHS2ND 10:45
PROVIDERS: Emergency Medicine; Admitting Provider Emergency Medicine; Emergency Provider Emergency Medicine; PCP Family Medicine; Visit Provider Nurse Practitioner
DX: U07.1 COVID-19 (principal); J12.82 Pneumonia due to coronavirus disease 2019; I12.9 Hypertensive chronic kidney disease with stage 1 through stage 4 chronic kidney disease, or unspecified chronic kidney disease; E11.22 Type 2 diabetes mellitus with diabetic chronic kidney disease; N18.30 Chronic kidney disease, stage 3 unspecified; K21.9 Gastro-esophageal reflux disease without esophagitis; E78.5 Hyperlipidemia, unspecified; E66.3 Overweight; R79.89 Other specified abnormal findings of blood chemistry; R77.8 Other specified abnormalities of plasma proteins; F41.1 Generalized anxiety disorder; F32.9 Major depressive disorder, single episode, unspecified; Z96.643 Presence of artificial hip joint, bilateral; Z90.710 Acquired absence of both cervix and uterus; Z90.49 Acquired absence of other specified parts of digestive tract
CPT/HCPCS: 31500; 36415; 36600; 71045; 71046; 71275; 80053; 81001; 82565; 82805; 82948; 83735; 83880; 84460; 84484; 85025; 85027; 85380; 85610; 85730; 87040; 87426; 93005; 94002; 96361; 96374; 99285; A9270; C9803; J0330; J0696; J0780; J1100; J1650; J1815; J2060; J2250; J2704; J2930; J7030; Q9967